=== PATIENT | female | born 1960 | race African-American/Black ===

== ENCOUNTER → 2019-08-01 | Outpatient (CLI) | payer SELFPAY ==
[2019-08-01 08:35] LABS: BASOPHILS % 0.3 % (0.0-2.0); HEMATOCRIT. 40.7 % (36.0-48.0); HEMOGLOBIN. 13.3 g/dL (12.0-16.0); LYMPHOCYTES % 41.2 % (20.0-50.0); MEAN CORPUSCULAR HEMOGLOBIN 26.1 pg (28.0-32.0); MEAN CORPUSCULAR VOLUME 79.9 fL (81.0-99.0); MEAN PLATELET VOLUME 10.2 fl (7.4-10.4); MONOCYTES % 6.4 % (2.0-8.0); NEUTROPHILS % 51.1 % (40.0-76.0); PLATELET 157 x1000/uL (130-400); RED BLOOD CELL COUNT 5.09 mill/uL (4.2-5.4); RED CELL DISTRIBUTION WIDTH 14.4 % (11.6-14.6)
[2019-08-01 08:42] LABS: CHLORIDE 97 mEq/L (98-107)
[2019-08-01 08:52] LABS: T4 FREE 1.27 ng/dL (0.76-1.46)
[2019-08-01 08:53] LABS: LDL CHOLESTEROL 108 mg/dL (5-100)
[2019-08-01 08:54] LABS: HDL CHOLESTEROL 39 mg/dL (40-59)
[2019-08-01 09:55] LABS: HEPATITIS B SURFACE ANTIGEN NEGATIVE
[2019-08-01 10:01] LABS: FOLIC ACID (FOLATE) SERUM >20 ng/mL ng/mL (>5.38)
[2019-08-01 10:04] LABS: HEPATITIS B SURFACE AB 14.5 mIU/mL
[2019-08-01 10:14] LABS: VITAMIN B12 SERUM 206 pg/mL (211-911)
[2019-08-01 10:25] LABS: HEPATITIS A AB IGM NEGATIVE (NEGATIVE)
[2019-08-02 09:06] LABS: VITAMIN D 25-OH 10.4 ng/mL (30.0-100.0)
[2019-08-02 13:10] LABS: CANCER ANTIGEN 125 12.6 U/mL (0.0-38.1)
[2019-08-02 14:13] LABS: CA 27.29 23.2 U/mL (0.0-38.6)
[2019-08-02 15:06] LABS: *CREATININE RANDOM URINE 119.2 mg/dL (Not Estab.); MICROALBUMIN RANDOM URINE 32.8 ug/mL (Not Estab.)
== END | disposition home or self-care (01) ==
LOC: LAB 07:36
DX: I11.9 Hypertensive heart disease without heart failure (principal); I50.9 Heart failure, unspecified; E11.65 Type 2 diabetes mellitus with hyperglycemia; G47.26 Circadian rhythm sleep disorder, shift work type
CPT/HCPCS: 36415; 80061; 82043; 82306; 82570; 82607; 82746; 83036; 84207; 84439; 84481; 86300; 86301; 86304; 86376; 86705; 86709; 86803; 87340